=== PATIENT | male | born 1980 | race Caucasian/White ===

== ENCOUNTER 2017-11-23 07:07 | Inpatient (IN) | payer OTHER ==
[~2017-11-23] VITALS: Ht 180.3 cm; Wt 145.1 kg
--- NOTE | ~2017-11-23 | S ---
[facility] [address] [place] [address] SURGICAL PATH RPT PROCEDURE Name: TAWANDA CHIANG Room #: 448-P ADM IN M.R.#: [id number] Admission: 11/23/17 Date of : 80 Discharge: Report #: [id number] Path Case #: [id number] PATHOLOGY REPORT COLLECTION DATE: 11/24/2017 RECEIVED DATE: 11/24/2017 SUBMITTING PHYS: Dr. Marina Salgado OTHER PHYS: Dr. Kole Webb SPECIMEN(S) RECEIVED: A.Duodenum B.Antrum C.Gastritis proximal stomach * * * * * * * * * * * * FINAL DIAGNOSIS: A. Small bowel mucosa, duodenum rule out celiac, endoscopic biopsy: - Moderate active duodenitis with mild villous blunting and abundant eosinophils (please see comment). - Negative for increase in intraepithelial lymphocytes. B. Gastric mucosa, antrum rule out H. pylori, endoscopic biopsy: - Mild chronic inflammation. - Negative for intestinal metaplasia or atrophy. - Negative for Helicobacter pylori. C. Gastric mucosa, gastritis proximal stomach, endoscopic biopsy: - Mild chronic inflammation. - Negative for intestinal metaplasia or atrophy. - Negative for Helicobacter pylori. COMMENT: A: Examination shows a markedly expanded lamina propria with neutrophils, numerous eosinophils (>50/hpf), as well as occasional lymphocytes. There is focal fundic-type metaplasia identified along with moderate amount of villous blunting present. 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 There is no dysplasia or malignancy present. Clinical correlation is suggested. Well-controlled Helicobacter pylori immunohistochemical stain performed on block B1-negative. Well-controlled Helicobacter pylori immunohistochemical stain performed on block C1-negative. (IUV:mgr; 11/25/2017) PATHOLOGIST: Radha Jackman M.D. [address] [address] SURGICAL PATH RPT PROCEDURE Name: TAWANDA CHIANG Room #: 448-P ADM IN [facility]#: [id number] Admission: 11/23/17 Date of : 80 Discharge: Report #: [id number] Path Case #: [id number] REPORT ELECTRONICALLY SIGNED BY: Rahda Jackman M.D. DATE/TIME: 11/25/2017 16:19 * * * * * * * * * * * * GROSS PATHOLOGY: A. Received in formalin labeled "Tawanda Chiang, duodenum, rule out celiac," are 2 segments of ewing soft tissue measuring 0.6 x 0.4 x 0.4 cm in aggregate dimensions and ranging from 0.1 to 0.5 cm in maximum dimension. The specimen is submitted entirely in cassette A1. B. Received in formalin labeled "Tawanda Chiang, antrum, rule out H. pylori.," are 2 segments of ewing soft tissue measuring 1.3 x 0.2 x 0.2 cm in aggregate dimensions and ranging from 0.3 to 0.9 cm in maximum dimension. The specimen is submitted entirely in cassette B1. C. Received in formalin labeled "Delioer Young, gastritis BX, proximal stomach," is a segment of ewing soft tissue measuring 0.5 cm in maximum dimension. The specimen is submitted entirely in cassette C1. (TSD; 11/24/2017) CLINICAL HISTORY: Pre-OP DX: Nausea with vomiting, abdominal pain, diarrhea Post-OP DX: Gastritis INITIAL CPT CODE(S): A; 25006 B; 82023, 24232 C; 77642, 08341 Professional services performed by [facility] at [facility] [address], [place] [address] Technical services performed by [facility] at [address] [place] [address], [address], [place] [address]. [facility] [address] [place] [address] PHONE: [phone] DIRECTOR: Fred Shelby M.D. * * * END OF REPORT * * *
[2017-11-23 07:09] VITALS: BP 148/99
[2017-11-23 07:48] LABS: BASOPHILS 0.8 % (0.0-2.0); EOSINOPHILS 6.6 % (0.0-3.0); HEMATOCRIT 43.4 % (42.0-52.0); HEMOGLOBIN 14.9 gm/dL (14.0-18.0); LYMPHOCYTES 18.1 % (24.0-44.0); MCH 28.9 pg (26.0-34.0); MCHC 34.4 g/dL (28.0-37.0); MCV 84.1 fL (80.0-100.0); MONOCYTES 5.1 % (1.0-8.0); PLATELET COUNT 410 thou/uL (150-400); POLYS 69.4 % (36.0-66.0); RBC 5.16 mil/uL (4.50-6.00); RDW 13.8 % (10.5-14.5)
[2017-11-23 07:55] LABS: CALCIUM 9.5 mg/dL (8.5-10.1); CREATININE 1.2 mg/dL (0.7-1.3)
[2017-11-23 08:30] LABS: URINE BILIRUBIN NEGATIVE (Negative); URINE BLOOD NEGATIVE (Negative); URINE CLARITY CLEAR; URINE COLOR YELLOW; URINE GLUCOSE-RANDOM* NEGATIVE (Negative); URINE KETONES NEGATIVE (Negative); URINE LEUKOCYTES NEGATIVE (Negative); URINE NITRITE NEGATIVE (Negative); URINE PROTEIN (DIPSTICK) NEGATIVE (Negative); URINE SPECIFIC GRAVITY >= 1.030 (1.005-1.035); URINE UROBILINOGEN 0.2 E.U./dl (0.2-1.0)
[2017-11-23 08:50] LABS: DIRECT BILIRUBIN 0.1 mg/dL (<0.1-0.3); TOTAL BILIRUBIN 0.5 mg/dL (<0.1-1.0); TOTAL PROTEIN 8.2 g/dL (6.4-8.2)
[2017-11-23] MEDS ORDERED: WELLBUTRIN XL150 MG PO (09:36)
[2017-11-23] MEDS ORDERED: ESCITALOPRAM OX20 MG PO (09:37)
[2017-11-23] MEDS ORDERED: METHYLPHENIDATE10 MG PO (09:37)
[2017-11-23] MEDS ORDERED: MIRAPEX 0.250.25 M1 PO (09:38)
[2017-11-23] MEDS ORDERED: LUNESTA2 MG PO (09:38)
[2017-11-23 11:41] VITALS: BP 136/81
[2017-11-23 11:48] VITALS: BP 126/79
[2017-11-23 17:30] VITALS: BP 124/79
[2017-11-23 19:36] VITALS: BP 132/85
[2017-11-24 03:35] VITALS: BP 133/76
[2017-11-24 05:35] LABS: ABSOLUTE NEUTROPHILS 5.6 thou/uL (1.4-8.2); BASOPHILS 0.2 % (0.0-2.0); EOSINOPHILS 5.6 % (0.0-3.0); HEMATOCRIT 38.5 % (42.0-52.0); LYMPHOCYTES 25.2 % (24.0-44.0); MCH 28.7 pg (26.0-34.0); MCHC 33.7 g/dL (28.0-37.0); MONOCYTES 8.6 % (1.0-8.0); POLYS 60.4 % (36.0-66.0); RBC 4.52 mil/uL (4.50-6.00); RDW 13.9 % (10.5-14.5); WBC 9.3 thou/uL (4.0-11.0)
[2017-11-24 05:39] LABS: PLATELET COUNT 332 thou/uL (150-400)
[2017-11-24 05:54] LABS: CALCIUM 8.4 mg/dL (8.5-10.1); CREATININE 0.9 mg/dL (0.7-1.3); POTASSIUM 3.9 mmol/L (3.5-5.1)
[2017-11-24 08:00] VITALS: BP 112/70
[2017-11-24] MEDS ORDERED: PANTOPRAZOLE SO40 M1 PO (08:13)
[2017-11-24 20:00] VITALS: BP 101/56
[2017-11-25 02:40] VITALS: BP 117/59
[2017-11-25 10:02] VITALS: BP 121/78
[2017-11-25 15:32] VITALS: BP 121/78
[2017-11-25 16:24] VITALS: BP 135/88
== END 2017-11-25 17:40 | disposition home or self-care (01) | DRG 392 ==
LOC: ER 07:07 → 4S 10:02 → EROBS 10:02 → 4S 11:38 → ENTRNSPT 11-25 16:25 → 4S 11-25 17:40
PROVIDERS: Emergency Medicine; Family Medicine
DX: K29.70 Gastritis, unspecified, without bleeding (principal); D72.829 Elevated white blood cell count, unspecified; K76.0 Fatty (change of) liver, not elsewhere classified; E66.9 Obesity, unspecified; F32.9 Major depressive disorder, single episode, unspecified; Z68.41 Body mass index [BMI] 40.0-44.9, adult; Z87.442 Personal history of urinary calculi; Z79.899 Other long term (current) drug therapy
CPT/HCPCS: 10195; 62110; 62900; 70005